=== PATIENT | male | born 1960 | race Caucasian/White ===

== ENCOUNTER 2022-10-20 10:32 | Emergency (ER) | payer OTHER ==
[~2022-10-20] VITALS: Ht 170.2 cm; Wt 100.6 kg
[2022-10-20 12:45] VITALS: BP 138/82
[2022-10-20] MEDS ORDERED: AMOX-277 PO (13:46)
[2022-10-20] MEDS ORDERED: IBUP800T26 PO (13:46)
[2022-10-20] MEDS ORDERED: HYDR-4902 PO (13:46)
== END 2022-10-20 13:58 | disposition home or self-care (01) ==
LOC: ER 10:32
DX: S09.93XA Unspecified injury of face, initial encounter (principal); K04.7 Periapical abscess without sinus; K02.9 Dental caries, unspecified; X58.XXXA Exposure to other specified factors, initial encounter; Y93.89 Activity, other specified; Y92.89 Other specified places as the place of occurrence of the external cause; Y99.8 Other external cause status